=== PATIENT | male | born 1970 | race African-American/Black ===

== ENCOUNTER 2020-07-25 03:41 | Inpatient (IN) | payer OTHER ==
[2020-07-25] MEDS ORDERED: ACETAMINOPHEN 1000 MG/100 ML VIAL (NON FORMULARY) IVPB ONE (04:22)
[2020-07-25] MEDS ORDERED: SODIUM CHLORIDE 1,000 ML IV STA (04:22)
[2020-07-25] MEDS ORDERED: methylPREDNISolone NA SUCC 125 MG/2 ML VIAL IVPUSH ONE (04:24)
[2020-07-25 04:49] LABS: BASO % 0.9 % (0-2.0); EOS % 8.2 % (0-4.5); HEMATOCRIT 45.9 % (35.4-49); HEMOGLOBIN 15.4 GM/dL (11.7-16.9); LYMPH % 45.3 % (8-40); MCH 30.9 pg (25.7-33.7); MCHC 33.6 g/dl (32.0-35.9); MEAN CELL VOLUME 91.9 fl (80-96); MEAN PLT VOLUME 7.5 fl (7.5-11.1); MONO % 8.4 % (3.8-10.2); NEUT % 37.2 % (42.8-82.8); PLATELET COUNT 280 K/MM3 (134-434); RDW 12.5 % (11.9-15.9); WHITE BLOOD COUNT 4.9 K/mm3 (4.0-10.0)
[2020-07-25 04:57] LABS: INR 0.97 (0.83-1.09)
[2020-07-25 05:00] LABS: ACTIVATED PTT 27.2 SECONDS (25.2-36.5)
[2020-07-25 05:10] LABS: POTASSIUM 3.9 mmol/L (3.5-5.1); SODIUM 140 mmol/L (136-145)
[2020-07-25 05:13] LABS: ALBUMIN 3.6 g/dl (3.4-5.0); BLOOD UREA NITROGEN 10.1 mg/dL (7-18); CALCIUM 9.1 mg/dL (8.5-10.1); CO2 26 mmol/L (21-32)
[2020-07-25] MEDS ORDERED: CLINDAMYCIN HCL 300 MG CAPSULE PO ONE (05:13)
[2020-07-25 05:14] LABS: GLUCOSE,RANDOM 136 mg/dL (74-106)
[2020-07-25 05:16] LABS: SGOT/AST 33 U/L (15-37); SGPT/ALT 37 U/L (13-61)
[2020-07-25 05:17] LABS: CREATININE 1.5 mg/dL (0.55-1.3)
[2020-07-25 05:18] LABS: TOT PROT 6.8 g/dl (6.4-8.2)
[2020-07-25 05:19] LABS: ALK PHOS 90 U/L (45-117)
[2020-07-25] MEDS ORDERED: CLINDAMYCIN HCL 150 MG CAPSULE (FP) ONE (05:30)
[2020-07-25 05:45] LABS: ANION GAP 6 MMOL/L (8-16); CHLORIDE 108 mmol/L (98-107)
[2020-07-25 13:56] VITALS: BMI 28.4
[2020-07-25] MEDS ORDERED: ceFAZolin SODIUM 1 GM VIAL ONE ×2 (14:47→18:11)
[2020-07-25] MEDS ORDERED: DEXTROSE 5%-WATER - 50 ML IVPB ONE ×2 (14:47→18:11)
[2020-07-25] MEDS: CEFAZOLIN 1 GM in DEXTROSE 5%-WATER - 50 ML IVPB SCH ×2 (14:59→18:19)
[2020-07-25] MEDS: KETOCONAZOLE 2% CREAM - 60GM TUBE TP SCH (23:07)
[2020-07-26] MEDS ORDERED: ceFAZolin SODIUM 1 GM VIAL ONE ×3 (00:34→18:41)
[2020-07-26] MEDS ORDERED: DEXTROSE 5%-WATER - 50 ML IVPB ONE ×3 (00:34→18:41)
[2020-07-26] MEDS: CEFAZOLIN 1 GM in DEXTROSE 5%-WATER - 50 ML IVPB SCH ×3 (01:54→18:48)
[2020-07-26] MEDS: KETOCONAZOLE 2% CREAM - 60GM TUBE TP SCH ×2 (10:17→22:04)
[2020-07-26] MEDS ORDERED: PT OWN MED DRAWER 7, Y5N ONE (13:10)
[2020-07-26] MEDS: GENTIAN VIOLET TP SCH ×2 (13:12→22:04)
[2020-07-26] MEDS: HEPARIN NA (PORCINE) 5,000 UNITS/ML 1ML VIAL SQ SCH (22:05)
[2020-07-27] MEDS ORDERED: ceFAZolin SODIUM 1 GM VIAL ONE ×3 (00:56→17:01)
[2020-07-27] MEDS ORDERED: DEXTROSE 5%-WATER - 50 ML IVPB ONE ×4 (00:57→20:19)
[2020-07-27] MEDS: CEFAZOLIN 1 GM in DEXTROSE 5%-WATER - 50 ML IVPB SCH ×3 (02:13→17:12)
[2020-07-27] MEDS: GENTIAN VIOLET TP SCH ×2 (09:44→21:45)
[2020-07-27] MEDS: HEPARIN NA (PORCINE) 5,000 UNITS/ML 1ML VIAL SQ SCH ×2 (09:44→21:44)
[2020-07-27] MEDS: KETOCONAZOLE 2% CREAM - 60GM TUBE TP SCH ×2 (10:00→21:45)
[2020-07-27] MEDS ORDERED: PIPERACILLIN/TAZOBACTAM 3.375 GM VIAL IVPB ONE (20:19)
[2020-07-27] MEDS: PIPERACILLIN/TAZOB 3.375 GM 3.375 GM in DEXTROSE 5%-WATER - 50 ML IVPB SCH (20:33)
[2020-07-27] MEDS ORDERED: diphenhydrAMINE HCL 25 MG CAPSULE (FP) PO ONE (21:06)
[2020-07-28] MEDS ORDERED: PIPERACILLIN/TAZOBACTAM 3.375 GM VIAL IVPB ONE ×3 (01:19→17:29)
[2020-07-28] MEDS ORDERED: DEXTROSE 5%-WATER - 50 ML IVPB ONE ×3 (01:19→17:29)
[2020-07-28] MEDS: PIPERACILLIN/TAZOB 3.375 GM 3.375 GM in DEXTROSE 5%-WATER - 50 ML IVPB SCH ×3 (01:32→17:34)
[2020-07-28] MEDS: HEPARIN NA (PORCINE) 5,000 UNITS/ML 1ML VIAL SQ SCH ×2 (11:12→21:29)
[2020-07-28] MEDS: GENTIAN VIOLET TP SCH (11:12)
[2020-07-28] MEDS: KETOCONAZOLE 2% CREAM - 60GM TUBE TP SCH ×2 (11:14→21:29)
[2020-07-28] MEDS ORDERED: diphenhydrAMINE HCL 25 MG CAPSULE (FP) PO ONE (20:28)
[2020-07-28] MEDS: diphenhydrAMINE HCL 25 MG CAPSULE (FP) PO PRN (21:29)
[2020-07-29] MEDS ORDERED: PIPERACILLIN/TAZOBACTAM 3.375 GM VIAL IVPB ONE ×3 (01:03→16:59)
[2020-07-29] MEDS ORDERED: DEXTROSE 5%-WATER - 50 ML IVPB ONE ×3 (01:03→16:59)
[2020-07-29] MEDS: PIPERACILLIN/TAZOB 3.375 GM 3.375 GM in DEXTROSE 5%-WATER - 50 ML IVPB SCH ×3 (02:28→17:02)
[2020-07-29 08:48] LABS: BASO % 0.5 % (0-2.0); EOS % 6.1 % (0-4.5); HEMATOCRIT 45.9 % (35.4-49); HEMOGLOBIN 15.5 GM/dL (11.7-16.9); LYMPH % 39.7 % (8-40); MCH 30.6 pg (25.7-33.7); MCHC 33.7 g/dl (32.0-35.9); MEAN CELL VOLUME 90.6 fl (80-96); MEAN PLT VOLUME 7.2 fl (7.5-11.1); MONO % 8.9 % (3.8-10.2); NEUT % 44.8 % (42.8-82.8); PLATELET COUNT 278 K/MM3 (134-434); RBC 5.06 M/mm3 (4.00-5.60); RDW 12.6 % (11.9-15.9); WHITE BLOOD COUNT 4.4 K/mm3 (4.0-10.0)
[2020-07-29 09:05] LABS: POTASSIUM 4.1 mmol/L (3.5-5.1)
[2020-07-29 09:16] LABS: ALBUMIN 3.6 g/dl (3.4-5.0); BLOOD UREA NITROGEN 9.1 mg/dL (7-18)
[2020-07-29 09:19] LABS: CREATININE 1.5 mg/dL (0.55-1.3)
[2020-07-29 09:20] LABS: BILIRUBIN,TOTAL 0.7 mg/dL (0.2-1); TOT PROT 6.5 g/dl (6.4-8.2)
[2020-07-29] MEDS ORDERED: PT OWN MED DRAWER 7, Y5N ONE (09:38)
[2020-07-29] MEDS: HEPARIN NA (PORCINE) 5,000 UNITS/ML 1ML VIAL SQ SCH ×2 (09:43→21:33)
[2020-07-29] MEDS: KETOCONAZOLE 2% CREAM - 60GM TUBE TP SCH ×2 (10:16→21:38)
[2020-07-29] MEDS: diphenhydrAMINE HCL 25 MG CAPSULE (FP) PO PRN (21:33)
[2020-07-30] MEDS ORDERED: DEXTROSE 5%-WATER - 50 ML IVPB ONE ×2 (01:06→08:49)
[2020-07-30] MEDS ORDERED: PIPERACILLIN/TAZOBACTAM 3.375 GM VIAL IVPB ONE ×2 (01:06→08:49)
[2020-07-30] MEDS: PIPERACILLIN/TAZOB 3.375 GM 3.375 GM in DEXTROSE 5%-WATER - 50 ML IVPB SCH ×2 (01:42→09:17)
[2020-07-30] MEDS: KETOCONAZOLE 2% CREAM - 60GM TUBE TP SCH (09:16)
[2020-07-30] MEDS: HEPARIN NA (PORCINE) 5,000 UNITS/ML 1ML VIAL SQ SCH (09:23)
[2020-07-30 14:09] VITALS: TEMP 98.6
[2020-07-30 18:25] VITALS: BP 137/91; PULSE 80
== END 2020-07-30 17:22 | disposition home or self-care (01) | DRG 383 ==
LOC: JER 03:41 → JERBED 06:00 → J5S 11:57
PROVIDERS: ADMIT Internal Medicine; ATTEND Internal Medicine
DX: L03.116 Cellulitis of left lower limb (principal); B35.3 Tinea pedis; Z86.718 Personal history of other venous thrombosis and embolism; Z86.711 Personal history of pulmonary embolism; F17.210 Nicotine dependence, cigarettes, uncomplicated
CPT/HCPCS: 36415; 73630-TC-LT; 80053; 85025; 85610; 85730; 86140; 87070; 87205; 93005; 93010; 93971-TC; 99285-25; C9803; J0131; J1644; U0003

== ENCOUNTER 2021-05-09 04:33 | Day surgery (SDC) | payer OTHER ==
[2021-05-07 16:26] VITALS: BMI 28.7
[2021-05-09] MEDS ORDERED: BUPIVACAINE LIPOSOME/PF (EXPAREL) 266 MG/20 ML VIAL ONE (07:18)
[2021-05-09] MEDS ORDERED: BUPIVACAINE HCL/PF 0.5% (5MG/ML) 10 ML VIAL ONE (07:19)
[2021-05-09] MEDS ORDERED: MIDAZOLAM HCL 2 MG/2 ML SINGLE DOSE VIAL ONE ×2 (07:20)
[2021-05-09] MEDS ORDERED: PROPOFOL 20 ML ONE ×4 (07:29→10:56)
[2021-05-09] MEDS ORDERED: LIDOCAINE HCL/PF 2% SDV 5ML VIAL ONE (07:29)
[2021-05-09] MEDS ORDERED: DEXAMETHASONE SOD PHOSPHATE 4 MG/1 ML VIAL ONE (07:31)
[2021-05-09] MEDS ORDERED: ePHEDrine SULFATE 50 MG/1 ML AMPULE ONE (07:31)
[2021-05-09] MEDS ORDERED: KETOROLAC TROMETHAMINE 30 MG/1 ML VIAL ONE (07:31)
[2021-05-09] MEDS ORDERED: SUCCINYLCHOLINE CHLORIDE 200 MG/10 ML SYRINGE ONE (07:32)
[2021-05-09] MEDS ORDERED: NEOSTIGMINE METHYLSULFATE 0.5 MG/ML - 10 ML MDV ONE (07:32)
[2021-05-09] MEDS ORDERED: ROCURONIUM BROMIDE 50 MG/5 ML SYRINGE ONE (07:32)
[2021-05-09] MEDS ORDERED: GLYCOPYRROLATE 0.2 MG/1 ML VIAL ONE (07:33)
[2021-05-09] MEDS ORDERED: fentaNYL CITRATE 250 MCG/5 ML VIAL ONE (07:43)
[2021-05-09] MEDS ORDERED: ceFAZolin SODIUM 1 GM VIAL IVPB ONE (08:40)
[2021-05-09] MEDS ORDERED: ONDANSETRON 4 MG/2 ML VIAL IVPUSH PRN (10:58)
[2021-05-09] MEDS ORDERED: oxyCODONE HCL 5 MG TABLET PO PRN (10:58)
[2021-05-09] MEDS ORDERED: LACTATED RINGERS SOLUTION 1,000 ML IV SCH (11:00)
[2021-05-09 12:56] VITALS: TEMP 97
[2021-05-09 14:06] VITALS: BP 130/79; PULSE 88
== END 2021-05-09 14:00 | disposition home or self-care (01) ==
LOC: JASU-SURG 04:33
PROVIDERS: ATTEND Surgery
PROC: 8E0W4CZ Robotic Assisted Procedure of Trunk Region, Percutaneous Endoscopic Approach (ICD-10-PCS; 2021-05-09)
PROC: 0WUF4JZ Supplement Abdominal Wall with Synthetic Substitute, Percutaneous Endoscopic Approach (ICD-10-PCS; principal; 2021-05-09 08:00)
DX: K43.9 Ventral hernia without obstruction or gangrene (principal)
CPT/HCPCS: 49652; S2900; 94760

== ENCOUNTER 2021-08-10 13:10 | Emergency (ER) | payer OTHER ==
[2021-08-10 13:15] VITALS: BP 137/85; PULSE 82; TEMP 97; BMI 29.7
== END 2021-08-10 14:05 | disposition home or self-care (01) ==
LOC: JERFT 13:10 → JER 13:10 → JERFT 14:05
DX: B35.3 Tinea pedis (principal)
CPT/HCPCS: 99283-25

== ENCOUNTER 2021-08-21 16:32 | Inpatient (IN) | payer OTHER ==
[2021-08-21] MEDS ORDERED: CLINDAMYCIN 600MG PREMIX IVPB 600 MG/50 ML BAG IVPB ONE (17:15)
[2021-08-21] MEDS ORDERED: PIPERACILLIN/TAZOB 3.375 GM 3.375 GM in DEXTROSE 5%-WATER - 50 ML IVPB ONE (17:22)
[2021-08-21] MEDS ORDERED: NYSTATIN POWDER 100,000 UNITS/GM - 15 GM TOPICAL POWDER TP ONE (17:23)
[2021-08-21] MEDS ORDERED: PIPERACILLIN/TAZOB 3.375 GM 3.375 GM/50 ML BAG IVPB ONE (17:51)
[2021-08-21 18:36] LABS: BASO % 0.8 % (0-2.0); EOS % 3.8 % (0-4.5); HEMATOCRIT 46.1 % (35.4-49); HEMOGLOBIN 15.5 GM/dL (11.7-16.9); LYMPH % 31.1 % (8-40); MCH 30.9 pg (25.7-33.7); MCHC 33.7 g/dl (32.0-35.9); MEAN CELL VOLUME 91.7 fl (80-96); MEAN PLT VOLUME 7.1 fl (7.5-11.1); MONO % 9.1 % (3.8-10.2); NEUT % 55.2 % (42.8-82.8); PLATELET COUNT 306 10^3/uL (134-434); RBC 5.03 M/mm3 (4.00-5.60); RDW 12.8 % (11.9-15.9); WHITE BLOOD COUNT 4.3 K/mm3 (4.0-10.0)
[2021-08-21 18:54] LABS: CALCIUM 9.7 mg/dL (8.5-10.1)
[2021-08-21 18:55] LABS: BLOOD UREA NITROGEN 11.5 mg/dL (7-18)
[2021-08-21 18:58] LABS: CREATININE 1.4 mg/dL (0.55-1.3)
[2021-08-21 18:59] LABS: BILIRUBIN,TOTAL 0.3 mg/dL (0.2-1)
[2021-08-21 19:00] LABS: TOT PROT 7.6 g/dl (6.4-8.2)
[2021-08-22] MEDS ORDERED: PIPERACILLIN/TAZOBACTAM 3.375 GM VIAL IVPB ONE ×2 (11:35→17:03)
[2021-08-22] MEDS ORDERED: DEXTROSE 5%-WATER - 50 ML IVPB ONE ×2 (11:36→17:04)
[2021-08-22] MEDS: PIPERACILLIN/TAZOB 3.375 GM 3.375 GM in DEXTROSE 5%-WATER - 50 ML IVPB SCH ×2 (11:58→17:25)
[2021-08-22] MEDS ORDERED: diphenhydrAMINE HCL 25 MG CAPSULE (FP) PO ONE (21:45)
[2021-08-23] MEDS ORDERED: PIPERACILLIN/TAZOBACTAM 3.375 GM VIAL IVPB ONE ×2 (00:55→09:41)
[2021-08-23] MEDS ORDERED: DEXTROSE 5%-WATER - 50 ML IVPB ONE ×3 (00:56→17:17)
[2021-08-23] MEDS: PIPERACILLIN/TAZOB 3.375 GM 3.375 GM in DEXTROSE 5%-WATER - 50 ML IVPB SCH ×2 (01:35→09:45)
[2021-08-23] MEDS ORDERED: diphenhydrAMINE HCL 25 MG CAPSULE (FP) PO PRN (11:52)
[2021-08-23 15:42] VITALS: BMI 28.1
[2021-08-23] MEDS ORDERED: CEFEPIME HCL 1 GM VIAL (RESTRICTED TO ID) ONE (17:17)
[2021-08-23] MEDS: CEFEPIME 1 GM in DEXTROSE 5%-WATER - 1 GM/50 ML IVPB IVPB SCH (17:20)
[2021-08-23] MEDS ORDERED: NYSTATIN 100000 UNIT/GM TOPICAL OINTMENT 15 GM TUBE TP SCH (22:00)
[2021-08-24] MEDS ORDERED: DEXTROSE 5%-WATER - 50 ML IVPB ONE ×3 (01:09→16:33)
[2021-08-24] MEDS ORDERED: CEFEPIME HCL 1 GM VIAL (RESTRICTED TO ID) ONE ×3 (01:09→16:33)
[2021-08-24] MEDS: CEFEPIME 1 GM in DEXTROSE 5%-WATER - 1 GM/50 ML IVPB IVPB SCH ×3 (01:15→17:34)
[2021-08-24 09:59] LABS: BASO % 0.4 % (0-2.0); EOS % 5.4 % (0-4.5); HEMATOCRIT 44.3 % (35.4-49); HEMOGLOBIN 15.3 GM/dL (11.7-16.9); LYMPH % 27.7 % (8-40); MCH 31.5 pg (25.7-33.7); MCHC 34.5 g/dl (32.0-35.9); MEAN CELL VOLUME 91.3 fl (80-96); MONO % 6.9 % (3.8-10.2); NEUT % 59.6 % (42.8-82.8); PLATELET COUNT 274 10^3/uL (134-434); RBC 4.85 M/mm3 (4.00-5.60); RDW 13.1 % (11.9-15.9); WHITE BLOOD COUNT 4.5 K/mm3 (4.0-10.0)
[2021-08-24 10:12] LABS: CALCIUM 8.9 mg/dL (8.5-10.1)
[2021-08-24 10:14] LABS: BLOOD UREA NITROGEN 10.3 mg/dL (7-18)
[2021-08-24 10:17] LABS: CREATININE 1.4 mg/dL (0.55-1.3)
[2021-08-24 10:19] LABS: BILIRUBIN,TOTAL 0.3 mg/dL (0.2-1); TOT PROT 6.8 g/dl (6.4-8.2)
[2021-08-24 10:28] LABS: ALBUMIN 3.2 g/dl (3.4-5.0)
[2021-08-25] MEDS ORDERED: CEFEPIME HCL 1 GM VIAL (RESTRICTED TO ID) ONE ×3 (01:41→20:06)
[2021-08-25] MEDS ORDERED: DEXTROSE 5%-WATER - 50 ML IVPB ONE ×3 (01:42→20:07)
[2021-08-25] MEDS: CEFEPIME 1 GM in DEXTROSE 5%-WATER - 1 GM/50 ML IVPB IVPB SCH ×3 (01:45→20:09)
[2021-08-25] MEDS: NYSTATIN 100,000 UNIT/GM TOPICAL CREAM 15 GM TUBE TP SCH (18:54)
[2021-08-25] MEDS: ENOXAPARIN NA (PORCINE) 40 MG/0.4 ML DISP.SYRIN SQ SCH (22:07)
[2021-08-25] MEDS: ASPIRIN 81 MG CHEWABLE TABLETS PO SCH (22:07)
[2021-08-26] MEDS: NYSTATIN 100,000 UNIT/GM TOPICAL CREAM 15 GM TUBE TP SCH ×3 (00:30→13:00)
[2021-08-26] MEDS ORDERED: CEFEPIME HCL 1 GM VIAL (RESTRICTED TO ID) ONE ×3 (01:14→17:25)
[2021-08-26] MEDS ORDERED: DEXTROSE 5%-WATER - 50 ML IVPB ONE ×3 (01:14→17:25)
[2021-08-26] MEDS: CEFEPIME 1 GM in DEXTROSE 5%-WATER - 1 GM/50 ML IVPB IVPB SCH ×3 (01:22→17:37)
[2021-08-26 09:14] LABS: BASO % 0.6 % (0-2.0); EOS % 2.2 % (0-4.5); HEMATOCRIT 43.6 % (35.4-49); HEMOGLOBIN 14.8 GM/dL (11.7-16.9); LYMPH % 22.2 % (8-40); MCH 31.2 pg (25.7-33.7); MCHC 33.9 g/dl (32.0-35.9); MEAN CELL VOLUME 92.1 fl (80-96); MEAN PLT VOLUME 7.6 fl (7.5-11.1); MONO % 8.8 % (3.8-10.2); NEUT % 66.2 % (42.8-82.8); PLATELET COUNT 264 10^3/uL (134-434); RBC 4.74 M/mm3 (4.00-5.60); RDW 12.9 % (11.9-15.9)
[2021-08-26 09:28] LABS: BILIRUBIN,TOTAL 0.5 mg/dL (0.2-1); TOT PROT 6.6 g/dl (6.4-8.2)
[2021-08-26 09:43] LABS: ALBUMIN 3.2 g/dl (3.4-5.0); BLOOD UREA NITROGEN 11.1 mg/dL (7-18)
[2021-08-26 09:46] LABS: CREATININE 1.4 mg/dL (0.55-1.3)
[2021-08-26] MEDS: ASPIRIN 81 MG CHEWABLE TABLETS PO SCH (09:51)
[2021-08-26] MEDS: ENOXAPARIN NA (PORCINE) 40 MG/0.4 ML DISP.SYRIN SQ SCH (09:52)
[2021-08-26] MEDS ORDERED: ACETAMINOPHEN 325 MG TABLET (FP) PO ONE (20:15)
[2021-08-27] MEDS: NYSTATIN 100,000 UNIT/GM TOPICAL CREAM 15 GM TUBE TP SCH ×2 (02:38→06:48)
[2021-08-27] MEDS ORDERED: CEFEPIME HCL 1 GM VIAL (RESTRICTED TO ID) ONE ×2 (03:10→09:20)
[2021-08-27] MEDS ORDERED: DEXTROSE 5%-WATER - 50 ML IVPB ONE ×2 (03:10→09:20)
[2021-08-27] MEDS: CEFEPIME 1 GM in DEXTROSE 5%-WATER - 1 GM/50 ML IVPB IVPB SCH ×2 (03:12→09:23)
[2021-08-27 05:45] VITALS: BP 132/85; PULSE 77; TEMP 98.5
[2021-08-27] MEDS: ENOXAPARIN NA (PORCINE) 40 MG/0.4 ML DISP.SYRIN SQ SCH (09:24)
[2021-08-27] MEDS: ASPIRIN 81 MG CHEWABLE TABLETS PO SCH (09:24)
[2021-08-27 09:39] LABS: BASO % 0.3 % (0-2.0); EOS % 1.6 % (0-4.5); HEMATOCRIT 45.5 % (35.4-49); HEMOGLOBIN 15.7 GM/dL (11.7-16.9); LYMPH % 18.5 % (8-40); MCH 31.5 pg (25.7-33.7); MCHC 34.6 g/dl (32.0-35.9); MEAN PLT VOLUME 7.2 fl (7.5-11.1); MONO % 6.4 % (3.8-10.2); NEUT % 73.2 % (42.8-82.8); PLATELET COUNT 289 10^3/uL (134-434); RDW 12.8 % (11.9-15.9); WHITE BLOOD COUNT 8.4 K/mm3 (4.0-10.0)
[2021-08-27 09:51] LABS: URINE APPEARANCE CLEAR; URINE BILIRUBIN NEGATIVE (NEGATIVE); URINE COLOR YELLOW; URINE GLUCOSE (UA) NEGATIVE (NEGATIVE); URINE KETONE NEGATIVE (NEGATIVE); URINE LEUK ESTERASE NEGATIVE (NEGATIVE); URINE NITRITE NEGATIVE (NEGATIVE); URINE PROTEIN NEGATIVE (NEGATIVE); URINE UROBILINOGEN 0.2 mg/dL (0.2-1.0)
[2021-08-27 10:01] LABS: CALCIUM 9.4 mg/dL (8.5-10.1)
[2021-08-27 10:02] LABS: ALBUMIN 3.6 g/dl (3.4-5.0); BLOOD UREA NITROGEN 8.8 mg/dL (7-18)
[2021-08-27 10:06] LABS: CREATININE 1.4 mg/dL (0.55-1.3)
[2021-08-27 10:08] LABS: BILIRUBIN,TOTAL 0.6 mg/dL (0.2-1); TOT PROT 7.6 g/dl (6.4-8.2)
== END 2021-08-27 15:42 | disposition home or self-care (01) | DRG 383 ==
LOC: JER 16:32 → JERBED 19:01 → J6S 08-22 03:43
PROVIDERS: ADMIT Internal Medicine; ATTEND Internal Medicine
DX: L03.116 Cellulitis of left lower limb (principal); N17.9 Acute kidney failure, unspecified; I82.619 Acute embolism and thrombosis of superficial veins of unspecified upper extremity; L97.529 Non-pressure chronic ulcer of other part of left foot with unspecified severity; L08.9 Local infection of the skin and subcutaneous tissue, unspecified; L29.9 Pruritus, unspecified; M79.89 Other specified soft tissue disorders; R60.0 Localized edema; B35.3 Tinea pedis
CPT/HCPCS: 36415; 73630-TC-LT; 76775-TC; 80053; 81003; 82570; 84156; 85025; 87040; 87070; 87077; 87186; 87205; 93005; 93010; 93971; 99285-25; C9803; G0463-25; U0003; U0005

== ENCOUNTER 2021-09-13 12:21 | Emergency (ER) | payer OTHER ==
[2021-09-13 13:07] VITALS: BP 134/85; PULSE 89; TEMP 97.8; BMI 28.4
[2021-09-13 14:56] LABS: BASO % 0.8 % (0-2.0); EOS % 5.9 % (0-4.5); HEMATOCRIT 45.8 % (35.4-49); LYMPH % 35.8 % (8-40); MCH 29.9 pg (25.7-33.7); MCHC 32.8 g/dl (32.0-35.9); MEAN CELL VOLUME 91.2 fl (80-96); MEAN PLT VOLUME 7.2 fl (7.5-11.1); MONO % 11.2 % (3.8-10.2); NEUT % 46.3 % (42.8-82.8); PLATELET COUNT 281 10^3/uL (134-434); RBC 5.03 M/mm3 (4.00-5.60); RDW 12.9 % (11.9-15.9); WHITE BLOOD COUNT 4.7 K/mm3 (4.0-10.0)
[2021-09-13 15:17] LABS: CALCIUM 9.1 mg/dL (8.5-10.1)
[2021-09-13 15:18] LABS: BLOOD UREA NITROGEN 12.7 mg/dL (7-18)
[2021-09-13 15:21] LABS: CREATININE 1.3 mg/dL (0.55-1.3)
== END 2021-09-13 16:03 | disposition home or self-care (01) ==
LOC: JER 12:21
DX: L03.116 Cellulitis of left lower limb (principal); Z48.00 Encounter for change or removal of nonsurgical wound dressing
CPT/HCPCS: 36415; 80048; 85025; 99283-25

== ENCOUNTER 2021-12-24 16:36 | Emergency (ER) | payer OTHER ==
[2021-12-24 16:42] VITALS: BP 125/86; PULSE 95; TEMP 97.9; BMI 28.3
== END 2021-12-24 18:08 | disposition home or self-care (01) ==
LOC: JERFT 16:36
DX: B35.3 Tinea pedis (principal)
CPT/HCPCS: 99283-25

== ENCOUNTER 2022-04-15 16:49 | Emergency (ER) | payer OTHER ==
[2022-04-15 17:05] VITALS: BP 120/76; PULSE 80; RESP 18; TEMP 98; BMI 28.4
== END 2022-04-15 18:19 | disposition home or self-care (01) ==
LOC: JERFT 16:49
DX: B35.3 Tinea pedis (principal)
CPT/HCPCS: 99281-25

== ENCOUNTER 2022-04-19 17:19 | Emergency (ER) | payer OTHER ==
[2022-04-19 17:26] VITALS: BP 162/78; PULSE 101; RESP 18; TEMP 98.1; BMI 28.4
== END 2022-04-19 18:00 | disposition home or self-care (01) ==
LOC: JER 17:19
DX: B35.3 Tinea pedis (principal)
CPT/HCPCS: 99281-25

== ENCOUNTER 2022-07-14 19:36 | Emergency (ER) | payer OTHER ==
[2022-07-14 19:58] VITALS: BP 132/86; PULSE 92; RESP 18; TEMP 98; BMI 27.3
== END 2022-07-14 20:27 | disposition home or self-care (01) ==
LOC: JER 19:36 → JERFT 19:36
DX: B35.3 Tinea pedis (principal); L03.032 Cellulitis of left toe
CPT/HCPCS: 99281-25

== ENCOUNTER 2022-10-20 16:58 | Emergency (ER) | payer OTHER ==
[2022-10-20 17:14] VITALS: BP 121/88; PULSE 67; RESP 18; TEMP 98.3; BMI 26.7
== END 2022-10-20 18:36 | disposition home or self-care (01) ==
LOC: JERFT 16:58
DX: B35.3 Tinea pedis (principal)
CPT/HCPCS: 99282-25